=== PATIENT | female | born 1980 | race Hispanic/Latino ===

== ENCOUNTER 2016-12-18 09:39 | Outpatient (CLI) | payer OTHER ==
--- NOTE | 2016-12-18 12:12 | ULT ---
PELVIC ULTRASOUND: Date: 12/18/16 HISTORY: Left-sided pelvic pain. TECHNIQUE: Real-time images of the pelvis were performed transabdominally, as well as with an endovaginal probe . FINDINGS: The uterus has been removed. Right ovary is not visualized. Left ovary is normal in size. No free fl uid. DOPPLER EVALUATION WITH SPECTRAL ANALYSIS: Normal flow is shown to the left adnexa. IMPRESSION: Postop hysterectomy change. The right ovary is not visualized. POS: [facility]
== END 2016-12-18 09:40 | disposition home or self-care (01) ==
LOC: ULT 09:39
PROVIDERS: ATTEND Family Medicine
DX: R10.32 Left lower quadrant pain (principal); Z90.710 Acquired absence of both cervix and uterus
CPT/HCPCS: 76856